=== PATIENT | male | born 1930 | race Caucasian/White ===

== ENCOUNTER → 2016-06-03 | Day surgery (SDC) | payer MEDICARE ==
--- NOTE | 2016-05-30 17:24 | Pre-Procedure Note/Attestation ---
Pre-Procedure Note/Attestation Complete Prior to Procedure Planned Procedure: right Procedure Narrative: 1. 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 Excision of left forehead tumor. 3. Excision of left medial eyelid tumor Indications for Procedure Pre-Operative Diagnosis: 1. RIght pre auricular SCCA skin tumor 2. Excision of left forehead subQ cyst 3. Excision of left medial eyelid tumor-unknown pathology Attestation I attest that I discussed the nature of the procedure; its benefits; risks and complications; and alternatives (and the risks and benefits of such alternatives ), prior to the procedure, with the patient (or the patient's legal field service representative). I attest that, if there was a reasonable possibility of needing a blood transfusion, the patient (or the patient's legal field service representative) was given the [facility] standardized written summary, pursuant to the [place] Blood Safety Act ([place] Health and Safety Code # 1645, as amended). I attest that I re-evaluated the patient just prior to the surgery and that there has been no change in the patient's H&P, except as documented below: Dr. Austen Pastrana has done complete H/P with labs on 05/29/16-he is on staff on [facility] and should have dictated into pts chart. JMAES DICK May 30, 2016 17:24
[2016-06-03] VITALS (8 sets, daily range): BP systolic 81–110; BP diastolic 46–59
[~2016-06-03] VITALS: Ht 170.2 cm; Wt 72.6 kg
[~2016-06-03] MED LIST: ARICEPT5 MG ORAL; ATORVASTATIN CA40 MG ORAL; ATORVASTATIN CA80 MG ORAL; CARVEDILOL6.25 MG ORAL; DIOVAN80 MG ORAL; Dexamethasone 4mg/ml vial IVP ONE; Dexamethasone 4mg/ml vial ONE; FENOFIBRATE48 MG ORAL; FUROSEMIDE20 M1 ORAL; Hydrogen Peroxide 120ml Bottle TOPIC ONE; Hydromorphone 0.5mg/0.5ml inj IVP PRN; LEVOTHYROXINE75 MCG ORAL; LR 1000ml ONE; Lidocaine 1% 10mg/ml/Epi 0.005mg/ml 30ml vial INJ ONE; Metoclopramide 10mg/2ml Inj IVP PRN; Midazolam 2mg/2ml Inj ONE; NS Irrig 1000ml ONE; Norco 5mg/325mg tab ORAL PRN; Propofol 10mg/ml 20ml IV ONE; RAPAFLO8 MG ORAL; REMERON15 MG ORAL; Sterile Water Irrig 1000ml IRRIG ONE; XARELTO10 MG ORAL; fentaNYL 100 mcg/2 mL IV ONE
--- NOTE | 2016-06-03 09:32 | Anethesia Preoperative Eval ---
Anesthesia Pre-op PMH/ROS General Date of Evaluation: Jun 03, 2016 Time of Evaluation: 08:40 Anesthesiologist: REYES ASA Score: ASA 3 Mallampati Score Class I : Soft palate, uvula, fauces, pillars visible Class II: Soft palate, uvula, fauces visible Class III: Soft palate, base of uvula visible Class IV: Only hard plate visible Mallampati Classification: Class II Surgeon: KAPIL Diagnosis: SKIN CANCER Surgical Procedure: REMOVAL 3 FAACIAL MASSES Anesthesia History: none Family History: no anesthesia problems Allergies: Coded Allergies: ADHESIVE TAPE (Verified Allergy, Severe, 06/02/16) SKIN BUBBLES DURING APPLICATION OF ADHESIVE TAPE. Medications: see eMAR Past Medical History Cardiovascular: Reports: other, Denies: CAD, HTN, CO, valve dz Pulmonary: Denies: COPD, ASHLI, asthma, other Gastrointestinal/Genitourinary: Denies: CRI, ESRD, GERD, other Neurologic/Psychiatric: Denies: CVA, TIA, dementia, depression/anxiety, other Endocrine: Denies: DM, hypothyroidism, other, steroids HEENT: Denies: [place] (L), [place] (R), cataract (L), cataract (R), glaucoma, other Hematology/Immune: Reports: anemia Musculoskeletal/Integumentary: Denies: DDD, DJD, OA, RA, edema, other PMH Narrative: PACEREMAKER Anesthesia Pre-op Phys. Exam Physician Exam Last Vital Signs Date Time Temp Pulse Resp B/P Pulse Ox O2 Delivery O2 Flow Rate FiO2 06/03/16 07:39 97.3 93 18 106/59 98 Room Air Constitutional: NAD Neurologic: CN 2-12 intact Cardiovascular: RRR, other - PACER RYHTHM Respiratory: CTA Gastrointestinal: S/NT/ND Airway Exam Mallampati Score: Class II MO: full ROM: full Teeth: missing Dentures: lower, upper Anesthesia Pre-op A/P Studies Pre-op Studies: EKG - PACER RATE Risk Assessment & Plan Assessment: ASA3 Plan: MAC Status Change Before Surgery: No Pre-Antibiotics Given Within 1 Hr of Incision: AL Barrow M.D. Jun 03, 2016 09:32
--- NOTE | 2016-06-03 09:34 | Immediate Post-Op Evaluation ---
Immediate Post-Op Evalulation Immediate Post-Op Evalulation Procedure: EXCISION MASS SKIN X 3 Date of Evaluation: Jun 03, 2016 Time of Evaluation: 10:40 IV Fluids: 400 Blood Products: 0 Estimated Blood Loss: 0 Urinary Output: 0 Blood Pressure Systolic: 92 Blood Pressure Diastolic: 48 Pulse Rate: 94 Respiratory Rate: 16 O2 Sat by Pulse Oximetry: 99 Temperature (Fahrenheit): 98.3 Pain Score (1-10): 0 Nausea: No Vomiting: No Complications o Patient Status: awake, patent, none Hydration Status: adequate Given Within 1 Hr of Incision: AL Barrow M.D. Jun 03, 2016 09:34
--- NOTE | 2016-06-03 09:34 | 48 Hour Post Anesthesia Eval ---
Post Anesthesia Evaluation Procedure: EXCISION MASS SKIN X 3 Date of Evaluation: Jun 03, 2016 Time of Evaluation: 12:10 Blood Pressure Systolic: 100 Pulse Rate: 77 Respiratory Rate: 14 Temperature (Fahrenheit): 98 O2 Sat by Pulse Oximetry: 99 Airway: patent Nausea: No Vomiting: No Pain Intensity: 0 Hydration Status: adequate Mental Status/LOC: patient returned to baseline Follow-up care needed: ready to discharge AL CHAMBERS M.D. Jun 03, 2016 09:34
--- NOTE | 2016-06-03 11:01 | Discharge Instructions ---
Discharge Instructions Discharge Instructions Follow up with: Dr. Dick office 06/06/16 Diet: regular Resume Normal Activity?: No Activity: light activity Pneumonia Vaccine: pt refused vaccine Influenza Vaccine (Feb to Jul): pt refused vaccine Follow Up Orders pt and son have printed insturctions from my office Return to Work/School on: Jun 17, 2016 For Surgical Patients Contact your physician for: bleeding, pain, tenderness, redness, swelling, yellowish discharge in the op. site For Congestive Heart Failure Reminder Report to your physician any weight gain of 5 pounds or more in one week. JAMES DICK Jun 03, 2016 11:01
--- NOTE | 2016-06-03 11:07 | Brief Operative Note ---
Immediate Post Operative Note Operative Note Pre-op Diagnosis: 1. RIght pre auricular SCCA skin tumor 2. Excision of left forehead subQ cyst 3. Excision of left medial eyelid tumor-unknown pathology Procedure: 1. excision with frozen section right pre auricular SCCA. Multilayer closure 2. Excision of left pre auricular SubQ tumor with multilayer closure 3. Excision of left medial upper eyelid tumor Post-op Diagnosis: same as pre-op Surgeon: James Dick Manufacturing Applications Engineer: none Additional Surgeons: none Anesthesiologist: Lloyd Anesthesia: MAC Specimen: yes - left ear canal exostosis Complications: none Condition: stable Estimated Blood Loss: minimal Drains: none Packing: Neosporin Implant(s) used?: No JAMES DICK Jun 03, 2016 11:07
--- NOTE | 2016-06-03 19:17 | Operative Note - Dictated ---
DATE OF OPERATION: 06/03/2016 SURGEON: Harrison Philip M.D. PSYCHIATRIC ASSISTANT: None. ANESTHESIOLOGIST: Dr. Desai. Anesthesia: IV sedation as well as 10 mL of 1% lidocaine with 1:100,000 epinephrine. INDICATION FOR SURGERY: The patient with three skin tumors on his face, one is a biopsied squamous cell carcinoma in the right pre-auricular, which is 5 x 2.5 cm, second one is a cyst in the left forehead approximately 2 x 1 cm subcutaneous and third is a left medial upper eyelid tumor approximately 0.5 cm x 0.5 cm. PREOPERATIVE DIAGNOSIS: Known squamous cell carcinoma right pre-auricular, left subcuticular tumor and left upper eye lid tumor. POSTOPERATIVE DIAGNOSIS: 1. Known squamous cell carcinoma right pre-auricular, left subcuticular tumor and left upper eye lid tumor. 2. Frozen section was done on the right pre-auricular, all margins ultimately clear. Findings as above. PROCEDURE: 1. Excision of right pre-auricular skin tumor, 6 x 3 centimeters. 2. Frozen section clearance. 3. Multilayer closure. 4. Excision of a left subcutaneous cyst, 1.5 cm in diameter. 5. Multilayer closure. 6. Excision of left medial eyebrow tumor, 0.5 cm, simple closure. Technique: The patient prepped and draped in usual manner via intravenous sedation. Injected the aforementioned 1% lidocaine to 1:100,000 epinephrine. This was allowed to sit for 10 minutes. I then proceeded to make a vertical incision around the squamous cell carcinoma anterior to the right tragus. The rim was then taken as well. This was sent for pathology frozen section. It came back with a question of positive margins deep 3 to 9 o'clock. An additional frozen section was sent, it came back clear. Throughout the case the area was cleaned with Betadine. I then elevated 360 degrees to release any tension on tissue. I then placed two layers of 4-0 Vicryl in the deepest layer and 3 in the more superficial. I then had a running horizontal mattress 6-0 Prolene to close the epithelial edges. I then proceeded to make an incision over the forehead cyst and existing forehead line with 15 blade. Dissected out with a small Metzenbaum scissors. It was sent for permanent section. The area was irrigated out with Betadine and then sewn together with a deep 4-0 Vicryl and a superficial 6-0 plain suture. I then proceeded to address the left medial eyebrow. This was cut with a small scissors. Grossly all was removed. It then was sewn together with a single horizontal mattress with a 6-0 Prolene. All area tissue glue was placed over three layers of the forehead and the right preauricular, one layer on the upper eyelid. This was done because the patient is allergic to all tapes and sometimes Steri-Strips and therefore it was decided that we would try the tissue glue first. COUNTS: Sponge and needle count was correct. ESTIMATED BLOOD LOSS: 5 mL. COMPLICATIONS: None. DRAINS: None. The patient is awake, alert and stable throughout the procedure and in recovery room 20 minutes later. I did speak with the son postoperatively. Harrison Philip M.D. DR: BALDEMAR JOB#: [id number] CC: JOSE
[2016-06-06 10:30] VITALS: BP 100/48
== END | disposition home or self-care (01) ==
LOC: SUR 06:19
DX: C44.329 Squamous cell carcinoma of skin of other parts of face (principal); L72.0 Epidermal cyst; D64.9 Anemia, unspecified; Z95.0 Presence of cardiac pacemaker
CPT/HCPCS: 11440; 11442; 11646; 12053; 36415; 71020; 80053; 81001; 83735; 85025; 85610; 85730; 87086; 93005; J1100; J2250; J2704; J3010; J7120; 94003; 94150